=== PATIENT | female | born 1970 | race Two or more races ===

== ENCOUNTER 2018-09-13 21:51 | Emergency (ER) | payer OTHER ==
--- NOTE | 2018-09-14 00:04 | ER Document Report ---
ED Medical Screen (RME) - General Chief Complaint: Abdominal Pain Stated Complaint: ABDOMINAL PAIN Time Seen by Provider: 09/13/18 23:52 Notes: 48F with no past medical history presents to the emergency department for severe periumbilical abdominal pain since 230 this afternoon. She was boarding a flight leaving [place] when the pain started but she stated that she wanted to get home before she got seen. She states the pain is constant and unremitting rated 10/10. She states she is also very bloated and her notes it is gotten worse since they boarded the flight. She denies fevers, chills, nausea, vomiting, diarrhea. TRAVEL OUTSIDE OF THE [place] IN LAST 30 DAYS: No - Related Data Allergies/Adverse Reactions: No Known Allergies Allergy (Unverified 09/13/18 21:53) Past Medical History Renal/ Medical History: Denies: Hx Peritoneal Dialysis Physical Exam - Vital signs Vitals: Temp Pulse Resp BP Pulse Ox 98.4 F 68 16 178/82 H 98 09/13/18 22:25 09/13/18 22:25 09/13/18 22:25 09/13/18 22:25 09/13/18 22:25 - Respiratory Respiratory status: No respiratory distress Breath sounds: Normal - Cardiovascular Rhythm: Regular Heart sounds: Normal auscultation, S1 appreciated, S2 appreciated Murmur: No Course - Vital Signs Vital signs: Temp Pulse Resp BP Pulse Ox 98.4 F 68 16 178/82 H 98 09/13/18 22:25 09/13/18 22:25 09/13/18 22:25 09/13/18 22:25 09/13/18 22:25
[2018-09-14] MEDS ORDERED: FENTANYL CITRATE INJ/PF 100 MCG/2 ML AMPUL IV ONE (00:06)
[2018-09-14] MEDS ORDERED: ACETAMINOPHEN 325 MG TABLET PO ONE (00:06)
[2018-09-14 01:20] LABS: ABSOLUTE EOSINOPHILS # (AUTO) 0.1 10^3/uL (0.0-0.6); ABSOLUTE MONOCYTES (AUTO) 0.4 10^3/uL (0.1-1.4); ABSOLUTE NEUT (AUTO) 2.9 10^3/uL (1.7-8.2); BASOPHILS % (AUTO) 0.5 % (0-2); EOSINOPHILS % (AUTO) 1.1 % (0-6); HEMATOCRIT 35.7 % (36.0-47.0); HEMOGLOBIN 12.2 g/dL (12.0-15.5); LYMPHOCYTES % (AUTO) 46.7 % (13-45); MEAN CORPUSCULAR HEMOGLOBIN 29.4 pg (27.0-33.4); MEAN CORPUSCULAR HGB CONC 34.2 g/dL (32.0-36.0); MEAN CORPUSCULAR VOLUME 86 fl (80-97); MONOCYTES % (AUTO) 5.6 % (3-13); PLATELET COUNT 268 10^3/uL (150-450); RED BLOOD COUNT 4.15 10^6/uL (3.72-5.28); RED CELL DISTRIBUTION WIDTH 13.9 % (11.5-14.0); SEGMENTED NEUTROPHILS % (AUTO) 46.1 % (42-78); TOTAL CELLS COUNTED % (AUTO) 100 %; WHITE BLOOD COUNT 6.4 10^3/uL (4.0-10.5)
[2018-09-14] MEDS ORDERED: FENTANYL CITRATE INJ/PF 100 MCG/2 ML AMPUL ONE (02:19)
[2018-09-14 02:23] LABS: ALANINE AMINOTRANSFERASE 21 U/L (9-52); ALBUMIN 3.9 g/dL (3.5-5.0); ALKALINE PHOSPHATASE 87 U/L (38-126); ANION GAP 7 (5-19); ASPARTATE AMINO TRANSFERASE 18 U/L (14-36); BILIRUBIN,DIRECT 0.2 mg/dL (0.0-0.4); BILIRUBIN,TOTAL 0.7 mg/dL (0.2-1.3); BLOOD UREA NITROGEN 12 mg/dL (7-20); CALCIUM 9.3 mg/dL (8.4-10.2); CARBON DIOXIDE 25 mmol/L (22-30); CHLORIDE 109 mmol/L (98-107); GLUCOSE 99 mg/dL (75-110); POTASSIUM 3.4 mmol/L (3.6-5.0); SODIUM 140.5 mmol/L (137-145); TOTAL PROTEIN 6.6 g/dL (6.3-8.2)
--- NOTE | 2018-09-14 03:27 | RADIOLOGY REPORT (SQ) ---
EXAM DESCRIPTION: CT ABDOMEN PELVIS WITH IV CONTRAST COMPLETED DATE/TME: 09/14/2018 00:05 CLINICAL HISTORY: 48 years, Female, severe abd pain COMPARISON: None. TECHNIQUE: 397 Images stored on PACS. All CT scanners at this facility use dose modulation, iterative reconstruction, and/or weight based dosing when appropriate to reduce radiation dose to as low as reasonably achievable (ALARA). [facility]: Dose Right [facility]: CareDose [facility]: Dose Right [facility]: Teradose 4D [facility]: [employer] LIMITATIONS: None. FINDINGS: Limited evaluation of the lung bases is unremarkable. Osseous structures are grossly intact. Fatty infiltrative change to the liver. The spleen, adrenal glands, pancreas, kidneys are unremarkable. The gallbladder is present. Normal appendix. No gross evidence for bowel obstruction. No free air or free fluid. IMPRESSION: Negative for acute intra-abdominal/pelvic process TECHNICAL DOCUMENTATION: Quality ID # [id number]: Final reports with documentation of one or more dose reduction techniques (e.g., Automated exposure control, adjustment of the mA and/or kV according to patient size, use of iterative reconstruction technique) copyright 2011 [employer]- All Rights Reserved
[2018-09-14 03:39] LABS: APPEARANCE,URINE SLIGHTLY-CLOUDY; BILIRUBIN,URINE NEGATIVE (NEGATIVE); COLOR,URINE YELLOW; GLUCOSE, URINE NEGATIVE (NEGATIVE); KETONES,URINE NEGATIVE (NEGATIVE); LEUKOCYTE ESTERASE,URINE NEGATIVE (NEGATIVE); NITRITE,URINE NEGATIVE (NEGATIVE); PROTEIN,URINE NEGATIVE (NEGATIVE); URINE SPECIFIC GRAVITY 1.035; UROBILINOGEN,URINE NEGATIVE mg/dL (<2.0)
[2018-09-14] MEDS ORDERED: KETOROLAC TROMETHAMINE INJ/PF 30 MG/1 ML SDV IV ONE (04:23)
[2018-09-14] MEDS ORDERED: MORPHINE SULFATE 10 MG/ML INJ IV PRN (04:23)
[2018-09-14] MEDS ORDERED: METOCLOPRAMIDE HCL INJ/PF 10 MG/2 ML SDV IV ONE (04:24)
[2018-09-14] MEDS ORDERED: DICYCLOMINE HCL INJ 20 MG/2 ML AMPULE IM ONE (04:24)
[2018-09-14 05:00] LABS: BACTERIA (WET MOUNT) 4+ BACTERIA SEEN; EPITHELIALS (WET MOUNT) 4+ EPITHELIALS SEEN; RBCS (WET MOUNT) 4+ RBCS SEEN; T.VAGINALIS (WET MOUNT) NO TRICHOMONAS SEEN; WBCS (WET MOUNT) 2+ WBCS SEEN; YEAST (WET MOUNT) NO YEAST SEEN
[2018-09-14 06:22] LABS: CHLAM PCR NOT DETECTED (NOT DETECT); GON PCR NOT DETECTED (NOT DETECT)
--- NOTE | 2018-09-14 06:45 | ER Document Report ---
ED General - General Chief Complaint: Abdominal Pain Stated Complaint: ABDOMINAL PAIN Time Seen by Provider: 09/13/18 23:52 Primary Care Provider: NATALYA CHAU PA-C [Primary Care Provider] - Follow up tomorrow Notes: Patient is a 48-year-old female with no chronic medical problems, no prior abdominal surgical history, presents with 2-3 days of lower abdominal discomfort and bloating that became much worse in the last 12 hours. Patient describes the pain as being a severe, cramping, bloating discomfort. She states that the pain has been gradually worsening although became abruptly much worse when getting on a flight from [place] some back to home today. Nothing seems to improve the discomfort and she has tried ibuprofen. Nothing worsens the discomfort. The patient denies fever or constitutional symptoms. Has had vaginal bleeding but denies vaginal discharge or dysuria. Since her last cycle was over 3 months ago which is highly atypical for her and this is the first cycle she has had since that time. She has not seen her general physician or DIRECTOR ORACLE regarding today's concerns. She denies a history of similar symptoms in the past. TRAVEL OUTSIDE OF THE [place] IN LAST 30 DAYS: No - Related Data Allergies/Adverse Reactions: No Known Allergies Allergy (Unverified 09/13/18 21:53) Past Medical History - General Information source: Patient - Social History Smoking Status: Never Smoker Frequency of alcohol use: None Drug Abuse: None Lives with: Spouse/Significant other Family History: Reviewed & Not Pertinent Patient has suicidal ideation: No Patient has homicidal ideation: No Renal/ Medical History: Denies: Hx Peritoneal Dialysis Review of Systems - Review of Systems Notes: Constitutional: Negative for fever. HENT: Negative for sore throat. Eyes: Negative for visual changes. Cardiovascular: Negative for chest pain. Respiratory: Negative for shortness of breath. Gastrointestinal: Positive for bloating and lower abdominal pain. Positive for nausea. Genitourinary: Positive for vaginal bleeding Musculoskeletal: Negative for back pain. Skin: Negative for rash. Neurological: Negative for headaches, weakness or numbness. 10 point ROS negative except as marked above and in HPI. Physical Exam - Vital signs Vitals: Temp Pulse Resp BP Pulse Ox 98.4 F 68 16 178/82 H 98 09/13/18 22:25 09/13/18 22:25 09/13/18 22:25 09/13/18 22:25 09/13/18 22:25 Interpretation: Hypertensive Notes: PHYSICAL EXAMINATION: GENERAL: Well-appearing, well-nourished and in no acute distress. HEAD: Atraumatic, normocephalic. EYES: Pupils equal round and reactive to light, extraocular movements intact, sclera anicteric, conjunctiva are normal. ENT: nares patent, oropharynx clear without exudates. Moist mucous membranes. NECK: Normal range of motion, supple without lymphadenopathy LUNGS: Breath sounds clear to auscultation bilaterally and equal. No wheezes rales or rhonchi. HEART: Regular rate and rhythm without murmurs ABDOMEN: Soft, mildly bloated abdomen, mild suprapubic abdominal tenderness but no other areas of localized tenderness, normoactive bowel sounds. No guarding, no rebound. No masses appreciated. : Scant bleeding from the cervical office. No cervical lesions. No cervical motion tenderness. No adnexal tenderness. Mild subpubic tenderness to palpation. EXTREMITIES: Normal range of motion, no pitting or edema. No cyanosis. NEUROLOGICAL: No focal neurological deficits. Moves all extremities spont aneously and on command. PSYCH: Normal mood, normal affect. SKIN: Warm, Dry, normal turgor, no rashes or lesions noted. Course - Re-evaluation Re-evalutation: 09/14/18 06:42 Presentation of a well-appearing 48-year-old female with abdominal bleeding and lower abdominal cramping that is been ongoing for the past 2 days much worse in the last 12 hours. Abdominal exam is benign without any focal tenderness. Vitals are normal at the time of arrival. Laboratories are unremarkable without evidence of cystitis, , or leukocytosis. Based on clinical history and examination I do not suspect an acute appendicitis, tubo-ovarian abscess, related pathology, pelvic inflammatory disease, mesenteric ischemia, or pyelonephritis. Pelvic exam without cervical motion tenderness or focal adnexal tenderness. CT scan of the abdomen pelvis likewise unremarkable. Transvaginal ultrasound likewise normal with the exception of 2 fibroids which could be worsening the patient's pain. At this time will discharge with return precautions and follow-up recommendations. Verbal discharge instructions given a the bedside and opportunity for questions given. Medication warnings reviewed. Patient is in agreement with this plan and has verbalized understanding of return precautions and the need for primary care follow-up in the next 24-72 hours. 09/14/18 07:27 - Vital Signs Vital signs: Temp Pulse Resp BP Pulse Ox 98.4 F 68 16 178/82 H 97 09/13/18 22:25 09/13/18 22:25 09/14/18 07:00 09/13/18 22:25 09/14/18 07:00 - Laboratory Result Diagrams: 09/14/18 01:14 09/14/18 01:58 Laboratory results interpreted by me: 09/14/18 09/14/18 09/14/18 01:14 01:58 03:11 Hct 35.7 L Lymphocytes % 46.7 H Potassium 3.4 L Chloride 109 H Urine Blood LARGE H - Diagnostic Test Radiology reviewed: Reports reviewed Discharge - Discharge Clinical Impression: Lower abdominal pain, Abdominal bloating associated with menstruation, Vaginal bleeding Uterine fibroid Qualifiers: Uterine leiomyoma location: unspecified location Qualified Code(s): D25.9 - Leiomyoma of uterus, unspecified Condition: Good Disposition: HOME, SELF-CARE Additional Instructions: You have been seen in the Emergency Department (ED) for abdominal pain. Your evaluation did not identify a clear cause of your symptoms but was generally reassuring. Your CT scan, labs, ultrasound and pelvic exam are all reassuring. I do suspect that your symptoms are related to your menstrual cycle particular given that the cycle was delayed. For your pain: Take ibuprofen 600 mg and acetaminophen 1000 mg every 6 hours together as needed for pain. Please follow up with your doctor as soon as possible regarding today's emergent visit and the symptoms that are bothering you. Return to the ED if your abdominal pain worsens or fails to improve, you develop bloody vomiting, bloody diarrhea, you are unable to tolerate fluids due to vomiting, fever greater than 101, or other symptoms that concern you. Prescriptions: Tramadol HCl [Ultram 50 mg Tablet] 50 mg PO Q6HP PRN #10 tablet PRN Reason: Referrals: NATALYA CHAU PA-C [Primary Care Provider] - Follow up tomorrow STEFANIE BAER MD [ACTIVE STAFF] - Follow up in 3-5 days
--- NOTE | 2018-09-14 07:24 | RADIOLOGY REPORT (SQ) ---
EXAM DESCRIPTION: US TRANSVAGINAL COMPLETED DATE/TME: 09/14/2018 04:29 CLINICAL HISTORY: 48 years Female, lower pelvic pain, bleeding. LMP 09/10/2018 COMPARISON: None. TECHNIQUE: Complete pelvic ultrasound with transvaginal imaging. FINDINGS: Uterus: Uterus measures 7.4 x 6.4 x 5.9. Heterogeneous hypodense structures within the uterine myometrium. There is an posterior intramural structure measuring 1.5 cm in greatest dimension. There is a posterior subserosal structure measuring 2.6 cm in greatest dimension. Cervix measures 3.3 cm. Nabothian cysts. Endometrium: Endometrial thickness of 0.3 cm. Right ovary: Right ovary measures 3.0 x 1.2 x 1.9 cm. Left ovary: Left ovary measures 2.7 x 1.4 x 1.9 cm. Adnexa: No large adnexal masses. Free fluid: No free pelvic fluid. Duplex imaging: Color and spectral Doppler imaging of the ovaries demonstrates flow bilaterally. IMPRESSION: 1. There are 2 fibroids within the uterus, the largest is a subserosal posterior fibroid measuring 2.6 cm in greatest dimension. 2. No sonographic abnormality identified in the pelvis.
[2018-09-14 07:58] VITALS: BP 119/68
== END 2018-09-14 07:29 | disposition home or self-care (01) ==
LOC: ER 21:51
DX: R10.30 Lower abdominal pain, unspecified (principal); R14.0 Abdominal distension (gaseous); N93.8 Other specified abnormal uterine and vaginal bleeding; D25.9 Leiomyoma of uterus, unspecified; R11.0 Nausea
CPT/HCPCS: 99284; 96372; 96374; 96375; 36415; 87210; 85025; 81025; 80053; 81001; 87491; 87591; 76830; 93976; 74177; J0500; J3010; J1885; J2765

== ENCOUNTER → 2019-10-13 | Outpatient (CLI) | payer OTHER ==
--- NOTE | 2019-10-13 09:45 | ER RDC ASSESSMENT REPORT ---
Intake - In the Last 14 days Have you traveled outside [place]?: No Have you been in close contact with someone CONFIRMED: No Worked in Healthcare?: No - Symptoms Subjective Fever(Stewart feverish): Yes Chills: Yes Muscule Aches: Yes Runny Nose: Yes Sore Throat: Yes Cough (New or worsening chronic cough): Yes --How many day(s)?: RePorts a dry cough has been treated for bronchitis Shortness of breath: Yes Nausea or Vomiting: No Headache: Yes Abdominal Pain: Yes Diarrhea(3 or more loose stools in last 24 hours): No - Do you have any of the following Chronic lung disease: Asthma or emphysema or COPD: No Cystic Fibrosis: No Diabetes: No High Blood Pressure: No Cardiovascular Disease: No Chronic Kidney Disease: No Chronic Liver Disease: No Chronic blood disorder like Sickle Cell Disease: No Weak immune system due to disease or medication: No Neurologic condition that limits movement: No Developmental delay - Moderate to Severe: No Recent (within past 2 weeks) or current : No Morbid Obesity (>100 pounds over ideal weight): No Obesity Comment: Height 5 feet 3 inches weight 161 pounds - Objective Temperature: 96.2 F Pulse Rate: 86 Respiratory Rate: 20 Blood Pressure: 130/86 O2 Sat by Pulse Oximetry: 98 Objective: Given above, testing performed: If Testing Performed: Test Specimen Type Sent to General - General Information source: Patient Notes: Patient here for Covid testing. Has been feeling sick since September 20, 2019 just completed Antibiotics for Bronchitis. Was also given an inhaler. Reports has had fever on and off. Continues to have the same symptoms with cough not improved. Will be following up with PCP today. - Related Data Allergies/Adverse Reactions: No Known Allergies Allergy (Unverified 09/13/18 21:53) Past Medical History - Social History Smoking Status: Never Smoker Family History: Reviewed & Not Pertinent Renal/ Medical History: Denies: Hx Peritoneal Dialysis Physical Exam - General General appearance: Appears well, Alert In distress: None Notes: PHYSICAL EXAMINATION: GENERAL: Well-appearing and in no acute distress. HEAD: Atraumatic, normocephalic. EYES: sclera anicteric, conjunctiva are normal. ENT: nares patent. Moist mucous membranes. NECK: Normal range of motion, supple without lymphadenopathy slight right anterior lymphadenopothy tender bilateral. States throat sore both sides. LUNGS: CTAB and equal. No wheezes rales or rhonchi. Lung sounds clear resp even and unlabored. HEART: Regular rate and rhythm without murmurs ABDOMEN: Soft, nontender, normal bowel sounds, no guarding. EXTREMITIES: No cyanosis. NEUROLOGICAL: Normal speech. PSYCH: Normal mood, normal affect. SKIN: Warm, Dry, normal turgor, - Respiratory Breath sounds: Normal Diagnostic Results Laboratory Results: Patient informed of negative rapid strep and negative rapid flu. Pending strep culture pending covid testing results. Provided instructions on COVID to include: As a person under investigation for Covid 19, the [facility], division of public health advises you to adhere to the following guidance until your test results are reported to you. If your test result is positive, you will receive additional information from your provider and your local health department at that time. Remain at home until you are cleared by the health provider or public health authorities. Keep a log of visitors to your home, notify any visitors to your home of your isolation status. If you plan to move to a new address or leave the county, notify the local health department in your County. Call your doctor or seek care if you have an urgent medical need. Before seeking medical care, call ahead to get instructions from the provider before arriving at the medical office clinic or hospital. Notify them that you are being tested for the virus that causes Covid 19 so that arrangements can be made, as necessary, to prevent transmission to others in the healthcare setting. Next, notify the local health department in your county. If a medical emergency arises and you need to call 911, inform the first responders that you are being tested for the virus that causes Covid 19. Next, notify the local health department in your county. Patient Education/Counseling Counseling/Education: Patient presents with upper respiratory symptoms worrisome for possible Covid 19. Patient does not have emergency worring symptoms such as difficulty breathing, shortness of breath, chest pain, pressure, confusion or cyanosis. Patient appears suitable for discharge. Patient scheduled to follow up with PCP today. Instructed to go to ED for persistent or worsening symptoms. Patient's vital signs are stable and patient is nontoxic in appearance. Good return precautions have been discussed with patient, patient verbalized understanding and is agreeable with discharge plan of care at this time. C Discharge - Discharge Clinical Impression: COVID --19 SCREENING Condition: Stable Disposition: Home; Selfcare
[2019-10-13 09:49] VITALS: BP 130/86
[2019-10-13 11:31] LABS: A TYPE INFLUENZA AG NEGATIVE (NEGATIVE); B INFLUENZA AG NEGATIVE (NEGATIVE)
== END ==
LOC: RDC 09:07
PROVIDERS: ATTEND Nurse Practitioner Family
DX: Z20.828 Contact with and (suspected) exposure to other viral communicable diseases (principal); R50.9 Fever, unspecified; R05 Cough; J02.9 Acute pharyngitis, unspecified; R06.02 Shortness of breath; R09.89 Other specified symptoms and signs involving the circulatory and respiratory systems; R51 Headache; R10.9 Unspecified abdominal pain; M79.10 Myalgia, unspecified site
CPT/HCPCS: 87070; 87635; 87804; 87880; 99201; 99211

== ENCOUNTER → 2019-10-21 | Outpatient (CLI) | payer OTHER ==
--- NOTE | 2019-10-21 10:40 | RADIOLOGY REPORT (SQ) ---
EXAM DESCRIPTION: CHEST 2 VIEWS IMAGES COMPLETED DATE/TIME: 10/21/2019 10:21 am REASON FOR STUDY: R05 COUGH COMPARISON: None. EXAM PARAMETERS: NUMBER OF VIEWS: two views TECHNIQUE: Digital Frontal and Lateral radiographic views of the chest acquired. RADIATION DOSE: NA LIMITATIONS: none FINDINGS: LUNGS AND PLEURA: No opacities, masses or pneumothorax. No pleural effusion. MEDIASTINUM AND HILAR STRUCTURES: No masses or contour abnormalities. HEART AND VASCULAR STRUCTURES: Heart normal size. No evidence for failure. BONES: No acute findings. HARDWARE: None in the chest. OTHER: No other significant finding. IMPRESSION: NO ACUTE RADIOGRAPHIC FINDING IN THE CHEST. TECHNICAL DOCUMENTATION: JOB ID: [id number] 2010 [employer]- All Rights Reserved Reading location - IP/workstation name: [email or web address]
== END ==
LOC: RAD 10:10
PROVIDERS: ATTEND Physician Assistant
DX: R05 Cough (principal)
CPT/HCPCS: 71046

== ENCOUNTER 2019-12-06 09:30 | Emergency (ER) | payer OTHER ==
[2019-12-06 10:14] LABS: APPEARANCE,URINE CLEAR; BILIRUBIN,URINE NEGATIVE (NEGATIVE); COLOR,URINE STRAW; GLUCOSE, URINE NEGATIVE (NEGATIVE); KETONES,URINE NEGATIVE (NEGATIVE); LEUKOCYTE ESTERASE,URINE NEGATIVE (NEGATIVE); NITRITE,URINE NEGATIVE (NEGATIVE); PROTEIN,URINE NEGATIVE (NEGATIVE); URINE SPECIFIC GRAVITY 1.004; UROBILINOGEN,URINE NEGATIVE mg/dL (<2.0)
[2019-12-06] MEDS ORDERED: KETOROLAC TROMETHAMINE 60 MG/2 ML SDV IM ONE (11:21)
--- NOTE | 2019-12-06 11:22 | RADIOLOGY REPORT (SQ) ---
EXAM DESCRIPTION: CT ABD/PELVIS NO ORAL OR IV IMAGES COMPLETED DATE/TIME: 12/06/2019 11:04 am REASON FOR STUDY: low back pain/blood in urine COMPARISON: CT of the abdomen and pelvis with contrast from 09/14/2018. TECHNIQUE: CT scan of the abdomen and pelvis performed without intravenous or oral contrast. Images reviewed with lung, soft tissue, and bone windows. Reconstructed coronal and sagittal MPR images revi ewed. All images stored on PACS. All CT scanners at this facility use dose modulation, iterative reconstruction, and/or weight based d osing when appropriate to reduce radiation dose to as low as reasonably achievable (ALARA). [facility]: Dose Right [facility]: CareDose [facility]: Dose Right [facility]: Teradose 4D [facility]: [employer] RADIATION DOSE: CT Rad equipment meets quality standard of care and radiation dose reduction techniq ues were employed. CTDIvol: 8.7 mGy. DLP: 444 mGy-cm. LIMITATIONS: None. FINDINGS: LOWER CHEST: No acute findings. NON-CONTRASTED LIVER, SPLEEN, ADRENALS: Evaluation is limited due to the absence of intravenous contr ast. The relative hypoattenuation of the hepatic parenchyma is suggestive of underlying hepatic stea tosis. The spleen is normal in size. There is no adrenal mass. PANCREAS: No acute gross abnormality of the pancreas. GALLBLADDER: No abnormality that is apparent on CT. RIGHT KIDNEY AND URETER: Evaluation is limited due to the absence of intravenous contrast. There is no hydronephrosis, nephrolithiasis, hydroureter or ureterolithiasis. LEFT KIDNEY AND URETER: Evaluation is limited due to the absence of intravenous contrast. There is n o hydronephrosis, nephrolithiasis, hydroureter or ureterolithiasis. AORTA AND RETROPERITONEUM: No aneurysm of the abdominal aorta. No retroperitoneal adenopathy, hemorr irvin or mass. BOWEL AND PERITONEAL CAVITY: No bowel obstruction, bowel wall thickening or pericolonic/ perienteric inflammation. No mesenteric adenopathy, free intraperitoneal fluid or mesenteric/ omental inflammati on. APPENDIX: Normal. PELVIS, BLADDER, AND ABDOMINAL WALL:No urinary bladder calculus. There is no abnormality of the uter us or adnexa that is apparent on CT. There is no abdominal wall mass or hernia. BONES: No acute findings. OTHER: No other finding. IMPRESSION: No acute intra-abdominal abnormality. COMMENT: Quality ID # 436: Final reports with documentation of one or more dose reduction techniques (e.g., Automated exposure control, adjustment of the mA and/or kV according to patient size, use of iterative reconstruction technique) TECHNICAL DOCUMENTATION: JOB ID: [id number] 2010 [employer]- All Rights Reserved Reading location - IP/workstation name: [email or web address]
[2019-12-06 11:33] LABS: ABSOLUTE LYMPHOCYTES (AUTO) 1.8 10^3/uL (0.5-4.7); ABSOLUTE MONOCYTES (AUTO) 0.3 10^3/uL (0.1-1.4); ABSOLUTE NEUT (AUTO) 3.2 10^3/uL (1.7-8.2); BASOPHILS % (AUTO) 0.3 % (0-2); EOSINOPHILS % (AUTO) 0.8 % (0-6); HEMATOCRIT 37.3 % (36.0-47.0); HEMOGLOBIN 12.8 g/dL (12.0-15.5); LYMPHOCYTES % (AUTO) 33.7 % (13-45); MEAN CORPUSCULAR HEMOGLOBIN 29.9 pg (27.0-33.4); MEAN CORPUSCULAR HGB CONC 34.2 g/dL (32.0-36.0); MEAN CORPUSCULAR VOLUME 87 fl (80-97); MONOCYTES % (AUTO) 5.5 % (3-13); PLATELET COUNT 259 10^3/uL (150-450); RED BLOOD COUNT 4.27 10^6/uL (3.72-5.28); RED CELL DISTRIBUTION WIDTH 13.8 % (11.5-14.0); SEGMENTED NEUTROPHILS % (AUTO) 59.7 % (42-78); TOTAL CELLS COUNTED % (AUTO) 100 %; WHITE BLOOD COUNT 5.3 10^3/uL (4.0-10.5)
[2019-12-06 11:48] LABS: ALBUMIN 4.3 g/dL (3.5-5.0); ALKALINE PHOSPHATASE 102 U/L (38-126); ASPARTATE AMINO TRANSFERASE 29 U/L (14-36); BILIRUBIN,TOTAL 0.4 mg/dL (0.2-1.3); BLOOD UREA NITROGEN 10 mg/dL (7-20); CALCIUM 9.1 mg/dL (8.4-10.2); GLUCOSE 96 mg/dL (75-110); POTASSIUM 4.2 mmol/L (3.6-5.0); TOTAL PROTEIN 7.1 g/dL (6.3-8.2)
[2019-12-06 11:53] LABS: CARBON DIOXIDE 28 mmol/L (22-30); CHLORIDE 107 mmol/L (98-107)
[2019-12-06 12:04] LABS: ANION GAP 3 (5-19)
[2019-12-06] MEDS ORDERED: OXYCODONE-ACETAMINOPHEN 5-325 MG TABLET PO ONE (12:28)
--- NOTE | 2019-12-06 13:58 | RADIOLOGY REPORT (SQ) ---
EXAM DESCRIPTION: U/S NON-OB PELVIS TV W/O DOP IMAGES COMPLETED DATE/TIME: 12/06/2019 1:45 pm REASON FOR STUDY: pelvic/low back pain COMPARISON: Pelvic ultrasound from 09/14/2018. TECHNIQUE: Dynamic and static grayscale images acquired of the pelvis via transvaginal approach and recorded on PACS. Additional selected color Doppler and spectral images recorded. LIMITATIONS: None. FINDINGS: UTERUS: The uterus measures 8.6 x 5.2 x 4.3 cm. The echotexture of the myometrium is hete rogeneous and there are numerous uterine fibroids the largest of which measures 2.5 x 2.5 x 2.3 cm. ENDOMETRIAL STRIPE: The endometrium measures 5 mm in thickness. CERVIX: The cervix measures 2.9 cm in length. RIGHT OVARY AND DOPPLER: The right ovary measures 2.9 x 2.1 x 2.3 cm and on Doppler there is intact a rterial inflow and venous outflow within it. There is no adnexal mass. LEFT OVARY AND DOPPLER: The left kidney measures 2.3 x 1.7 x 1.5 cm and on Doppler there is intact ar terial inflow and venous outflow within it. There is no adnexal mass. FREE FLUID: None noted. OTHER: No other finding. IMPRESSION: 1. Uterine fibroids. 2. Normal endometrial thickness. 3. Normal appearance of the ovaries. TECHNICAL DOCUMENTATION: JOB ID: [id number] 2010 [employer] All Rights Reserved Rev-10/30 Reading location - IP/workstation name: [email or web address]
--- NOTE | 2019-12-06 14:05 | ER Document Report ---
ED General - General Chief Complaint: Back Pain Stated Complaint: BACK PAIN,BLOOD IN URINE Time Seen by Provider: 12/06/19 10:27 Primary Care Provider: NATALYA CHAU PA-C [Primary Care Provider] - Follow up as needed Mode of Arrival: Ambulatory Information source: Patient TRAVEL OUTSIDE OF THE [place] IN LAST 30 DAYS: No - HPI Notes: Patient is sent from urgent care with low back pain. She states she is had this pain for a little over a week. It is bilateral across the lower back. Nothing makes it better or worse. It has steadily become worse over the last week however. She denies any heavy lifting or new exercise programs. No known trauma. She has had no fever sweats or chills. No cough cold or congestion. No rashes. She has had no abdominal pain but she has had some lower pelvic pain and some mild dysuria. She has not appreciated any vaginal symptoms. No blood in the urine. She states she does have a history of uterine fibroids. The pain is been an aching sensation and is moderate in intensity. It does radiate across the lower back. - Related Data Allergies/Adverse Reactions: No Known Allergies Allergy (Unverified 09/13/18 21:53) Past Medical History - General Information source: Patient - Social History Smoking Status: Never Smoker Frequency of alcohol use: Social Drug Abuse: None Family History: Reviewed & Not Pertinent Renal/ Medical History: Denies: Hx Peritoneal Dialysis Review of Systems - Review of Systems Constitutional: denies: Chills, Fever Cardiovascular: denies: Chest pain, Palpitations Respiratory: denies: Cough, Short of breath -: Yes All other systems reviewed and negative Physical Exam - Vital signs Vitals: Temp Pulse Resp BP Pulse Ox 99.1 F 74 20 120/88 H 99 12/06/19 09:34 12/06/19 09:34 12/06/19 09:34 12/06/19 09:34 12/06/19 09:34 Interpretation: Normal - General General appearance: Appears well, Alert - HEENT Head: Normocephalic, Atraumatic Eyes: Normal Pupils: PERRL - Respiratory Respiratory status: No respiratory distress Chest status: Nontender Breath sounds: Normal Chest palpation: Normal - Cardiovascular Rhythm: Regular Heart sounds: Normal auscultation Murmur: No - Abdominal Inspection: Normal Distension: No distension Bowel sounds: Normal Tenderness: Nontender Organomegaly: No organomegaly - Back Back: Normal - Inspection of the area is unremarkable., Tender - Some minimal tenderness palpation of the lumbar area paraspinally bilaterally. - Extremities General upper extremity: Normal inspection, Nontender, Normal color, Normal ROM, Normal temperature General lower extremity: Normal inspection, Nontender, Normal color, Normal ROM, Normal temperature, Normal weight bearing. No: Sanjana's sign - Neurological Neuro grossly intact: Yes Cognition: Normal Orientation: AAOx4 Welsh Coma Scale Eye Opening: Spontaneous Gayla Coma Scale Verbal: Oriented Gayla Coma Scale Motor: Obeys Commands Gayla Coma Scale Total: 15 Speech: Normal Motor strength normal: LUE, RUE, LLE, RLE Sensory: Normal - Psychological Associated symptoms: Normal affect, Normal mood - Skin Skin Temperature: Warm Skin Moisture: Dry Skin Color: Normal Course - Re-evaluation Re-evalutation: 12/06/19 14:02 CT of the abdomen and pelvis is unremarkable including the bony windows. Patient's ultrasound does show multiple fibroids coupled with the blood in the urine I think patient may be having pain secondary to her fibroid. It does not appear to be consistent with a kidney stone since patient has bilateral pain. No other significant abnormality was appreciated. Her vital signs are stable. - Vital Signs Vital signs: Temp Pulse Resp BP Pulse Ox 99.1 F 73 20 120/88 H 100 12/06/19 09:37 12/06/19 09:37 12/06/19 09:37 12/06/19 09:37 12/06/19 09:37 - Laboratory Result Diagrams: 12/06/19 11:15 12/06/19 11:15 Laboratory results interpreted by me: 12/06/19 12/06/19 09:42 11:15 Anion Gap 3 L Urine Blood MODERATE H - Diagnostic Test Radiology reviewed: Image reviewed, Reports reviewed Discharge - Discharge Clinical Impression: Uterine fibroid Qualifiers: Uterine leiomyoma location: unspecified location Qualified Code(s): D25.9 - Leiomyoma of uterus, unspecified Condition: Stable Disposition: HOME, SELF-CARE Instructions: Low Back Pain ([facility]), Pain Medication Injection ([facility]) Additional Instructions: please call [facility] as soon as possible Prescriptions: Hydrocodone/Acetaminophen [[place] 5-325 mg Tablet] 1 tab PO Q6 PRN 3 Days #12 tablet PRN Reason: Forms: Return to Work Referrals: STEFANIE BAER MD [ACTIVE STAFF] - Follow up in 3-5 days
[2019-12-06 14:53] VITALS: BP 132/72
== END 2019-12-06 14:49 | disposition home or self-care (01) ==
LOC: ER 09:30
DX: D25.9 Leiomyoma of uterus, unspecified (principal); R31.9 Hematuria, unspecified; M54.5 Low back pain
CPT/HCPCS: 99284; 96372; 36415; 85025; 80053; 81001; 76830; 74176; J1885